=== PATIENT | male | born 1980 | race Caucasian/White ===

== ENCOUNTER 2018-07-25 14:48 | Emergency (ER) | payer BC ==
[2018-07-25] MEDS ORDERED: SODIUM CHLORIDE 0.9% 1,000 ML IV STA (15:35)
[2018-07-25 16:03] LABS: Basophils # (A) 0.1 k/uL (0-0.2); Basophils % (A) 1 %; Eosinophils # (A) 0.2 k/uL (0-0.7); Eosinophils % (A) 3 %; HCT 48.7 % (39.0-53.0); HGB 16.4 gm/dL (13.0-17.5); Lymphocytes # (A) 2.1 k/uL (1.0-4.8); Lymphocytes % (A) 22 %; MCH 29.2 pg (25.0-35.0); MCHC 33.7 g/dL (31.0-37.0); MCV 86.8 fL (80.0-100.0); Mean Platelet Volume 6.4; Monocytes # (A) 0.4 k/uL (0-1.0); Monocytes % (A) 5 %; Neutrophils # (A) 6.3 k/uL (1.3-7.7); Neutrophils % (A) 68 %; Platelet Count 286 k/uL (150-450); RBC 5.61 m/uL (4.30-5.90); RDW 13.3 % (11.5-15.5); WBC 9.3 k/uL (3.8-10.6)
[2018-07-25 16:13] LABS: ALT 46 U/L (21-72); AST 34 U/L (17-59); Albumin 4.3 g/dL (3.5-5.0); Alkaline Phosphatase 48 U/L (38-126); Anion Gap 8 mmol/L; Blood Urea Nitrogen 12 mg/dL (9-20); Calcium 9.3 mg/dL (8.4-10.2); Carbon Dioxide 25 mmol/L (22-30); Chloride 105 mmol/L (98-107); Glucose 87 mg/dL (74-99); Magnesium 1.9 mg/dL (1.6-2.3); Potassium 4.6 mmol/L (3.5-5.1); Sodium 138 mmol/L (137-145); Total Bilirubin 0.5 mg/dL (0.2-1.3)
[2018-07-25 16:18] LABS: Creatine Kinase 101 U/L (55-170); D-Dimer <0.17 mg/L FEU (<0.60); Partial Thromboplastin Time 27.8 sec (22.0-30.0); Prothrombin Time 10.8 sec (9.0-12.0)
[2018-07-25 16:32] LABS: Troponin I <0.012 ng/mL (0.000-0.034)
[2018-07-25] MEDS ORDERED: NITROGLYCERIN OINT 1 INCH/GM PACKET TOPICAL STA (16:48)
--- NOTE | 2018-07-25 16:56 | XR ---
EXAMINATION TYPE: XR chest 2V DATE OF EXAM: 07/25/2018 COMPARISON: None INDICATION: Chest pain TECHNIQUE: Frontal and lateral views of the chest are obtained. FINDINGS: The heart size is normal. The pulmonary vasculature is normal. The lungs are clear. IMPRESSION: 1. No acute pulmonary process.
--- NOTE | 2018-07-25 16:58 | ED ---
Chest Pain HPI - General Chief Complaint: Chest Pain Stated Complaint: Jaw and chest numbness, nausea, light headed Time Seen by Provider: 07/25/18 15:17 Source: patient Mode of arrival: ambulatory Limitations: no limitations - History of Present Illness Initial Comments: This is a 37-year-old male who around 12:30 today was his family house when he ran over the a chair stretching he states everything went dark and had diaphoretic nauseated. He had numbness to the right side of his jaw and neck area he later has some numbness to left side of his jaw lightheadedness. Some fluttering bubbling type sensation in his chest. No focal weakness to his arms or legs no headache he did have dark as well as vision briefly. He does have a history of concussion at age 15 and some type of nonfracture injury to C2 at that time. He still much improved at this time still has some residual discomfort to the left side of his neck and jaw area. He states prior to this episode he was feeling normal. No fevers chills sweats no other modifying factors at this time he is a nonsmoker. Did grow up in a household with smoke he currently is being treated for a sinus infection. MD Complaint: chest pain, other - Related Data Home Medications Medication Instructions Recorded Confirmed Albuterol Sulfate [Proair Hfa] 1 - 2 puff INHALATION RT-QID PRN 07/25/18 Amoxic-Pot Clav 875-125Mg 1 tab PO BID 07/25/18 07/25/18 [Augmentin 875-125] Lisinopril [Prinivil] 10 mg PO DAILY 07/25/18 07/25/18 Loratadine [Claritin] 10 mg PO DAILY 07/25/18 07/25/18 Montelukast [Singulair] 10 mg PO HS 07/25/18 07/25/18 Pseudoephedrine [Sudafed] 30 mg PO Q4H PRN 07/25/18 07/25/18 Previous Rx's Medication Instructions Recorded Ibuprofen 800 mg PO Q6HR PRN #20 tablet 07/25/18 Allergies Allergy/AdvReac Type Severity Reaction Status Date / Time acetaminophen Allergy Vomiting Verified 07/25/18 15:35 [From Wenceslaot-N] morphine Allergy Vomiting Verified 07/25/18 15:35 propoxyphene Allergy Vomiting Verified 07/25/18 15:35 [From Darvocet-N] Review of Systems ROS Statement: Those systems with pertinent positive or pertinent negative responses have been documented in the HPI. ROS Other: All systems not noted in ROS Statement are negative. Past Medical History Past Medical History: Asthma, Hypertension History of Any Multi-Drug Resistant Organisms: None Reported Additional Past Surgical History / Comment(s): Abd. Esophagus., Wrist phoenix. Knee. Past Psychological History: No Psychological Hx Reported Smoking Status: Never smoker Past Alcohol Use History: Occasional Past Drug Use History: None Reported General Exam - General Exam Comments Initial Comments: This is a well-developed well-nourished awake alert oriented 3 male Limitations: no limitations General appearance: alert, in no apparent distress Head exam: Present: atraumatic, normocephalic, normal inspection Eye exam: Present: normal appearance, PERRL, EOMI. Absent: scleral icterus, conjunctival injection, periorbital swelling ENT exam: Present: normal exam, mucous membranes moist Neck exam: Present: normal inspection, tenderness (Is palpation of the inferior left mandible and over the mandible musculature.). Absent: meningismus, lymphadenopathy Respiratory exam: Present: normal lung sounds bilaterally. Absent: respiratory distress, wheezes, rales, rhonchi, stridor Cardiovascular Exam: Present: regular rate, normal rhythm, normal heart sounds. Absent: systolic murmur, diastolic murmur, rubs, gallop, clicks GI/Abdominal exam: Present: soft, normal bowel sounds. Absent: distended, tenderness, guarding, rebound, rigid Extremities exam: Present: normal inspection, full ROM, normal capillary refill. Absent: tenderness, pedal edema, joint swelling, calf tenderness Back exam: Present: normal inspection Neurological exam: Present: alert, oriented X3, CN II-XII intact Psychiatric exam: Present: normal affect, normal mood Skin exam: Present: warm, dry, intact, normal color. Absent: rash Course Vital Signs 07/25/18 14:56 Temperature 98 F Pulse Rate 76 Respiratory 20 Rate Blood Pressure 149/102 O2 Sat by Pulse 98 Oximetry Chest Pain MDM - MDM I did review the imaging and report no acute findings. Patient currently is symptom free all imaging studies are negative for acute processes as were labs. The presentation is likely secondary to radicular pathology. Degenerative changes are seen on the CAT scan. Patient will be discharged she is to use over -the-counter anti-inflammatories when necessary for pain follow-up with Dr. Chao Clinical Impression: Cervical radiculopathy, Atypical chest pain, Vasovagal episode Disposition: HOME SELF-CARE Condition: Good Instructions: Cervical Radiculopathy (ED), Neck Pain (ED), Chest Pain (ED) Prescriptions: Ibuprofen 800 mg PO Q6HR PRN #20 tablet PRN Reason: Pain Is patient prescribed a controlled substance at d/c from ED?: No Referrals: Donte Roth MD [Primary Care Provider] - 1-2 days
--- NOTE | 2018-07-25 17:44 | CT ---
EXAMINATION TYPE: CT angio head neck DATE OF EXAM: 07/25/2018 COMPARISON: None HISTORY: Jaw numbness and near syncope CT DLP: 0.4 mGycm CONTRAST: Patient injected with 65 mL of Isovue 370. TECHNIQUE: Axial images at 3 mm thick sections. Reconstructed images in the coronal plane and sagitt al plane are reviewed. FINDINGS: Limited CT sections are obtained the lung apices. The lung apices appear clear. CT neck: The torus tubarius and fossa of Rosenmuller are normal. Client Care Coordinator spaces are normal. Para nasal sinuses and mastoid air cells are clear. Parotid glands appear normal and symmetrical. Submandibular glands, are normal. Parapharyngeal spac es are normal. No suspicious adenopathy is evident. The hypopharynx appears within normal limits. Vocal cord level is not well visualized. There may be some degree at the false vocal cord level. Cons ider direct visualization Thyroid as visualized is normal. Three-D and 2-D MIPS imaging through the bilateral carotid vertebral system is evaluated and reviewed . Vertebral arteries are codominant. The common carotid arteries bifurcate into internal and external carotid arteries. No stenosis is evident. Carotid arteries bifurcate into A1 and M1 segments at the pala of Swann. Posterior cerebral vasculature appears normal. Note is made to tortuosity in the di stal right internal carotid artery. To a lesser degree there is some mild tortuosity of the left dist al internal carotid artery. Osseous structures are normal. IMPRESSIONS: 1. Normal bilateral carotid bifurcations without stenosis. 2. Hartman of Swann appears within normal limits. 3. Soft tissue neck appears unremarkable.
[2018-07-25 18:23] VITALS: BP 129/99; PULSE 75; RESP 18; TEMP 97.9
== END 2018-07-25 18:23 | disposition home or self-care (01) ==
LOC: EC 14:48
DX: M54.12 Radiculopathy, cervical region (principal); R55 Syncope and collapse; R11.0 Nausea; J45.909 Unspecified asthma, uncomplicated; I10 Essential (primary) hypertension; Z79.899 Other long term (current) drug therapy; Z88.6 Allergy status to analgesic agent; Z88.5 Allergy status to narcotic agent
CPT/HCPCS: 36415; 93005; 85379; 80053; 82550; 82553; 83735; 84484; 85025; 85610; 85730; 71046; 70496; 70498; 99285; Q9967

== ENCOUNTER → 2021-03-01 | Outpatient (CLI) | payer BC ==
--- NOTE | 2021-03-01 10:02 | MR ---
EXAMINATION TYPE: MR shoulder RT wo con DATE OF EXAM: 03/01/2021 COMPARISON: No radiographic correlation available HISTORY: 40-year-old male S46.001A, shoulder pain, RTC injury TECHNIQUE: Multiplanar, multisequence imaging of the right shoulder is performed without contrast. FINDINGS: There is some linear intrinsic signal within the intracapsular portion of the long head biceps tendon . The extracapsular portion remains appropriately situated along the bicipital groove with mild tenos ynovial fluid. Some deficiency of superior most subscapularis tendon fibers, sagittal image 20 and axial image 16. T he majority of the tendon remains intact. Wpnq-[id number]-[id number] degenerative change at the acromioclavicular joint with joint space narrowing, capsu lar hypertrophy, and mild marginal spurring. Subchondral marrow edema is also present and mild capsul ar edema. No significant encroachment onto the underlying myotendinous junction of the supraspinatus. Trace fluid/thickening of the subacromial/subdeltoid bursa. There is minimal bursal sided fraying of the far anterior surface. Its tendon and additional fraying along the anterior free edge marginating the rotator cuff interval. Otherwise, surface meniscus infraspinatus tendons are intact. Minimal fatty streaks and mild edema of the teres minor. No mass lesion within the quadrilateral spac e. Otherwise, no atrophy of the rotator cuff musculature. The glenohumeral joint is intact. Some degenerative signal in the posterior superior labrum. No discr ete tear given nonarthrographic technique and no paralabral cyst. No Hill-Sachs deformity or os acromiale. Patchy red marrow is present in the seen in the setting of anemia, obesity, smoking, chronic disease. IMPRESSION: 1. Tendinosis with bursal sided and anterior free edge fraying of the supraspinatus tendon. No high-g rade partial or full-thickness tear. 2. Additionally, there is partial tear of the superior fibers of the subscapularis tendon. The majori ty of the tendon remains intact. 3. Isolated early fatty infiltration of the teres minor muscle with mild muscle edema. Correlate for possible quadrilateral space syndrome. No mass lesion is apparent by MRI. 4. Either tendinosis or small interstitial tear intracapsular portion of the long head biceps tendon. Mild tenosynovitis. 5. Gsun-ae-xqbetxxg AC joint OA with some reactive edema. 6. Slightly degenerative appearance to the posterior superior labrum. If concern for labral pathology , MR arthrogram could be considered.
== END | disposition home or self-care (01) ==
LOC: RADMRIMAIN 06:50
PROVIDERS: ATTEND Orthopaedic Surgery
DX: S46.011A Strain of muscle(s) and tendon(s) of the rotator cuff of right shoulder, initial encounter (principal); M67.813 Other specified disorders of tendon, right shoulder; M19.011 Primary osteoarthritis, right shoulder; M65.811 Other synovitis and tenosynovitis, right shoulder

== ENCOUNTER → 2021-03-14 | Outpatient (CLI) | payer BC ==
--- NOTE | 2021-03-14 21:12 | CONS ---
CONSULTATION REASON FOR CONSULTATION: Sleep apnea. This is a pleasant 40-year-old male patient, accompanied today by his , with concerns about poor sleep quality. The patient is feeling always tired. He snores and wakes up choking throughout the night. This problem has been going on for several years. He has been feeling excessively fatigued and sleepy. He stops breathing at night, as noted by his , and he wakes up gasping for air. He grinds and he has occasional nighttime heartburn. He goes to bed between 10 and 11 p.m. and wakes up at 6 a.m. in the morning. His sleep schedule changes, depending on his work schedule. 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 Sometimes he has to pull to the side of the road, as the patient becomes quite drowsy while driving back and forth. He has never gotten himself into a motor vehicle accident. PAST MEDICAL HISTORY: Hypertension, hyperlipidemia, allergic rhinitis, asthma, sciatica. PAST SURGICAL HISTORY: Past surgical history includes laparoscopic Stephan fundoplication, cyst removed from both ears, and knee surgeries involving the right knee. SOCIAL HISTORY: The patient is a secondhand smoker. No history of alcoholism. No history of IV drugs. FAMILY HISTORY: The patient is adopted. Family history is not known. OUTPATIENT MEDICATION: Outpatient medications includes losartan 50 daily, Crestor 10 daily, Singulair 10 daily, Mobic 15 daily, Zofran 4 mg p.r.n., Claritin over the counter, ProAir rescue inhaler. REVIEW OF SYSTEMS: Twelve-point review of system was done. Positive findings are mentioned in history of present illness. No recent weight gain. No recent weight loss. He sleeps on his side. No naps during the day. No sleep paralysis. No hallucinations. No cataplexy. No seizure activity. No restlessness in the lower extremities. PHYSICAL EXAMINATION: CURRENT VITALS: BP is 133/95, pulse 70, respirations 16, temperature 98.0, height is 5 feet 6 inches, weight is 185, saturation 97% on room air. BMI is 30. [place] score is 17. Neck size 16. GENERAL APPEARANCE: Calm, comfortable. No acute distress. HEAD: Atraumatic, normocephalic. NECK: Supple. No JVD. No goiter or neck masses. Mallampati class 4. LUNGS: Diminished. Otherwise clear. HEART: Heart sounds are regular rate and rhythm. Normal S1, S2. No S3, S4. No murmurs. ABDOMEN: Soft, nontender. No organomegaly. EXTREMITIES: No edema. No cyanosis or clubbing. IMPRESSION: 1. Chronic hypersomnia. [place] score of 17, with a high likelihood for obstructive sleep apnea. 2. Loud snoring. 3. Poor sleep quality with sleep fragmentation and frequent nocturnal arousals, likely secondary to obstructive sleep apnea. 4. Hypertension. 5. Hyperlipidemia. 6. Allergic rhinitis. 7. Bronchial asthma. 8. Sciatica. PLAN: 1. Clinically there is high suspicion for obstructive sleep apnea. 2. Encourage weight loss. 3. Optimize sleep hygiene measures. 4. Proceed with a home sleep study to investigate and screen the patient for obstructive sleep apnea and make further recommendations based on results. MMTHANIAL / CRISTOPHERN: [id number] /
== END ==
LOC: SLEEP 14:59
PROVIDERS: ATTEND Internal Medicine Critical Care Medicine
DX: G47.10 Hypersomnia, unspecified (principal); R06.83 Snoring; E78.5 Hyperlipidemia, unspecified; I10 Essential (primary) hypertension; J45.909 Unspecified asthma, uncomplicated; M54.30 Sciatica, unspecified side; Z79.899 Other long term (current) drug therapy; Z88.5 Allergy status to narcotic agent; Z88.6 Allergy status to analgesic agent
CPT/HCPCS: 99211

== ENCOUNTER → 2021-08-01 | Outpatient (CLI) | payer BC ==
--- NOTE | 2021-08-01 18:39 | PN ---
PROGRESS NOTE This patient was diagnosed having obstructive sleep apnea, moderate to severe, with an AHI of 90. He is a 40-year-old male patient who was reporting poor sleep quality, and he was started on CPAP therapy accordingly. Currently the patient is using an APAP, pressure minimum of 5, maximum of 15. He has undergone a tendon release for plantar fasciitis and he is feeling better. He is currently wearing a boot. I checked the compliance data on his machine, and over the past 30 days the patient has demonstrated excellent use. He has been averaging around 6.4 hours of CPAP use per night. He is using the machine for more than 4 hours 100% of the time. Leak is on order of 5 L/minute and his AHI is down to 1.7. The patient is using a Brevida nasal mask, medium/large. No significant weight gain. Westpoint score has improved. Hemodynamically stable. No stroke. No congestive heart failure. No other complaints otherwise. He is getting more and more compliant with the CPAP machine and he is liking the treatment, as the patient reports improvement in sleep quality. REVIEW OF SYSTEMS: Fourteen-point review of systems was done. Positive findings are all mentioned above in the history of present illness. PHYSICAL EXAMINATION: BP is 141/90, pulse 98, respirations 16, temperature 97.2. Westpoint score remains high at 9. Saturation 97% on room air. Weight is 182. GENERAL APPEARANCE: Calm, comfortable. HEAD: Atraumatic, normocephalic. Neck is supple. No JVD. No goiter or neck masses. Mallampati class IV. LUNGS: Clear to auscultation. Heart sounds are regular rate and rhythm. Normal S1, S2. No S3, S4. No murmurs. ABDOMEN: Soft, nontender. No organomegaly. EXTREMITIES: No edema. No cyanosis or clubbing. IMPRESSION: 1. Obstructive sleep apnea, moderate to severe. AHI of 19. 2. Previous history of hypersomnia, improved with CPAP therapy. 3. Plantar fasciitis, post surgical tendon release. PLAN: 1. Continue APAP therapy at the same level of pressure. 2. Compliance data was checked. No adjustments will be done on the machine for today. 3. Continue the Brevida nose mask. 4. Encourage weight loss. 5. Implement good sleep hygiene measures. 6. See me back in followup in a year's time. Treatment is successful for now. The patient is reporting improvement in sleep quality in general. MMODL / IJN: [id number] /
== END ==
LOC: SLEEP 15:06
PROVIDERS: ATTEND Internal Medicine Critical Care Medicine
DX: G47.33 Obstructive sleep apnea (adult) (pediatric) (principal); M72.2 Plantar fascial fibromatosis; Z99.89 Dependence on other enabling machines and devices; Z98.890 Other specified postprocedural states; Z88.6 Allergy status to analgesic agent; Z88.8 Allergy status to other drugs, medicaments and biological substances

== ENCOUNTER → 2022-07-18 | Outpatient (CLI) | payer BC ==
--- NOTE | 2022-07-18 15:27 | US ---
EXAMINATION TYPE: US kidneys/renal and bladder DATE OF EXAM: 07/18/2022 COMPARISON: NONE CLINICAL HISTORY: N20.0 CALCULUS OF KIDNEY. Hx of kidney stones. Left sided pain today. EXAM MEASUREMENTS: Right Kidney: 10.6 x 5.9 x 4.7 cm Left Kidney: 9.9 x 5.6 x 6.0 cm Right Kidney: Hyperechoic focus seen at mid: 0.4 x x 0.4 x 0.6 cm. Left Kidney: Hyperechoic focus seen upper pole: 0.3 x 0.5 x 0.3 cm. Hyperechoic focus seen lower pole: 0.4 x 0.4 x 0.4 cm. Bladder: Appears anechoic. Bilateral Jets seen: Yes IMPRESSION: 1. Nonobstructing bilateral renal stones
== END | disposition home or self-care (01) ==
LOC: RADUSWWP 13:49
PROVIDERS: ATTEND Internal Medicine
DX: N20.0 Calculus of kidney (principal)
CPT/HCPCS: 76770